=== PATIENT | female | born 1950 | race African-American/Black ===

== ENCOUNTER 2017-09-26 12:09 | Emergency (ER) | payer MEDICARE ==
--- NOTE | 2017-09-26 15:23 | Cat Scan Report ---
FINAL REPORT PROCEDURE: CT HEAD/BRAIN WO CON TECHNIQUE: Computerized tomography of the head was performed without contrast material. HISTORY: fall, headache COMPARISON: No prior studies are available for comparison. FINDINGS: Skull and scalp: Normal. Paranasal sinuses: Normal. Ventricles and subarachnoid spaces: Normal. Cerebrum: No evidence of hemorrhage, acute infarction or mass. Mild atrophy. There are basal ganglia calcifications. Cerebellum and brainstem: No evidence of hemorrhage, acute infarction or mass. Vasculature: Normal. Comments: None. IMPRESSION: Involutional change. No hemorrhage.
--- NOTE | 2017-09-27 02:59 | Emergency Department Report ---
ED General Adult HPI - General Chief complaint: Fall Stated complaint: DIZZINESS/HEADACHE Time Seen by Provider: 09/27/17 02:41 Source: patient Mode of arrival: Ambulatory Limitations: Language Barrier - History of Present Illness Initial comments: Patient declines formal scaffold worker, patient requests that daughter translate for her. Daughter is Ms. Flaherty; [phone] Patient had a mechanical fall and landed on the left side of her head. Prior to the fall, patient had no symptoms. After the fall, patient has left-sided headache. Headache does not radiate anywhere. Headache increases with palpation of the left temporal region and decreases with rest. There is no neck pain, there is no vomiting, there is no weakness focally, there is no numbness, there is no ataxia. Patient describes nonspecific dizziness. -: Sudden Location: head Radiation: non-radiation Severity scale (0 -10): 4 Quality: aching Consistency: intermittent Improves with: rest Worsens with: movement Associated Symptoms: headaches. denies: confusion, chest pain, cough, diaphoresis, fever/chills, loss of appetite, rash, seizure, shortness of breath , syncope, weakness - Related Data Home Medications Medication Instructions Recorded Confirmed Last Taken ALPRAZolam [Xanax TAB] 0.25 mg PO TID PRN 09/05/15 09/05/15 Unknown Amitriptyline [Elavil] 0.5 tab PO QHS 09/05/15 09/05/15 Unknown Citalopram Hydrobromide [celeXA] 20 mg PO DAILY 09/05/15 09/05/15 Unknown Meloxicam 15 mg PO QDAY 09/05/15 09/05/15 Unknown Previous Rx's Medication Instructions Recorded Last Taken Type Aspirin EC [Aspirin Enteric Coated 81 mg PO QDAY #90 tablet 06/12/15 1 Day Ago Rx TAB] ~06/14/15 Multivit-Min/Iron/Folic/Lutein 1 each PO QDAY #90 tablet 06/12/15 1 Day Ago Rx [Centrum Silver Women Tablet] ~06/14/15 [facility] Fatty Acids/Fish Oil [Fish 2,000 mg PO BID #60 capsule 06/12/15 1 Day Ago Rx Oil] ~06/14/15 Simvastatin [Zocor TAB] 40 mg PO QHS #30 tablet 06/12/15 1 Day Ago Rx ~06/14/15 metFORMIN [Glucophage] 500 mg PO BID #60 tablet 06/12/15 1 Day Ago Rx ~06/14/15 Famotidine [Pepcid] 20 mg PO BID #60 tablet 09/05/15 Unknown Rx Omeprazole [PriLOSEC] 40 mg PO QAM #30 cap 09/05/15 Unknown Rx Acetaminophen [Tylenol Arthritis] 650 mg PO Q6HR PRN #30 tablet.er 09/27/17 Unknown Rx Allergies Allergy/AdvReac Type Severity Reaction Status Date / Time latex AdvReac Itching Verified 09/26/17 12:27 ED Review of Systems ROS: Stated complaint: DIZZINESS/HEADACHE Other details as noted in HPI ED Past Medical Hx - Past Medical History Hx Diabetes: Yes ("PREDIABETIC") Additional medical history: HIGH CHOLESTEROL, - Surgical History Additional Surgical History: CATARACTS REMOVED - Social History Smoking Status: Never Smoker Substance Use Type: None - Medications Home Medications: Home Medications Medication Instructions Recorded Confirmed Last Taken Type Aspirin EC [Aspirin Enteric Coated 81 mg PO QDAY #90 tablet 06/12/15 09/05/15 1 Day Ago Rx TAB] ~06/14/15 Multivit-Min/Iron/Folic/Lutein 1 each PO QDAY #90 tablet 06/12/15 09/05/15 1 Day Ago Rx [Centrum Silver Women Tablet] ~06/14/15 [facility] Fatty Acids/Fish Oil [Fish 2,000 mg PO BID #60 capsule 06/12/15 1 Day Ago Rx Oil] ~06/14/15 Simvastatin [Zocor TAB] 40 mg PO QHS #30 tablet 06/12/15 09/05/15 1 Day Ago Rx ~06/14/15 metFORMIN [Glucophage] 500 mg PO BID #60 tablet 06/12/15 09/05/15 1 Day Ago Rx ~06/14/15 ALPRAZolam [Xanax TAB] 0.25 mg PO TID PRN 09/05/15 09/05/15 Unknown History Amitriptyline [Elavil] 0.5 tab PO QHS 09/05/15 09/05/15 Unknown History Citalopram Hydrobromide [celeXA] 20 mg PO DAILY 09/05/15 09/05/15 Unknown History Famotidine [Pepcid] 20 mg PO BID #60 tablet 09/05/15 Unknown Rx Meloxicam 15 mg PO QDAY 09/05/15 09/05/15 Unknown History Omeprazole [PriLOSEC] 40 mg PO QAM #30 cap 09/05/15 Unknown Rx Acetaminophen [Tylenol Arthritis] 650 mg PO Q6HR PRN #30 tablet.er 09/27/17 Unknown Rx ED Physical Exam - General Limitations: Language Barrier General appearance: alert, in no apparent distress - Head Head exam: Present: normocephalic, other (there is a left-sided temporal ecchymosis) - Eye Eye exam: Present: normal appearance, EOMI, other (visual acuity intact to finger counting, color perception. Bilateral evidence of cataract surgery noted in the pupils). Absent: nystagmus - ENT ENT exam: Present: normal exam, normal orophraynx, mucous membranes moist, TM's normal bilaterally, normal external ear exam, other (no hemotympanum. No nasal septal hematoma) - Neck Neck exam: Present: normal inspection, full ROM. Absent: tenderness, meningismus - Respiratory Respiratory exam: Present: normal lung sounds bilaterally. Absent: respiratory distress, chest wall tenderness - Cardiovascular Cardiovascular Exam: Present: regular rate, normal rhythm, normal heart sounds. Absent: systolic murmur, diastolic murmur, rubs, gallop - GI/Abdominal GI/Abdominal exam: Present: soft, normal bowel sounds. Absent: distended, tenderness, guarding, rebound, rigid, pulsatile mass - Extremities Exam Extremities exam: Present: normal inspection, full ROM, normal capillary refill. Absent: pedal edema, joint swelling, calf tenderness - Back Exam Back exam: Present: normal inspection, full ROM. Absent: tenderness, CVA tenderness (R), paraspinal tenderness, vertebral tenderness - Neurological Exam Neurological exam: Present: alert, CN II-XII intact, normal gait (normal gait, normal tandem gait, negative Romberg, no pass pointing, normal [id number]), other (Extraocular movements intact. Tongue midline. No facial droop. Facial sensation intact to light touch in the V1, V2, V3 distribution bilaterally. 5 and 5 strength in 4 extremities.. Sensation is intact to light touch in 4 extremities.). Absent: motor sensory deficit - Psychiatric Psychiatric exam: Present: normal affect, normal mood - Skin Skin exam: Present: warm, ecchymosis (left temporal ecchymosis). Absent: rash, other (no lacerations are noted) ED Course Vital Signs 09/26/17 09/26/17 09/27/17 12: 22:18 03:00 Temperature 97.9 F 98.0 F 97.8 F Pulse Rate 76 68 70 Respiratory 16 14 18 Rate Blood Pressure 124/74 146/74 Blood Pressure 130/75 [Right] O2 Sat by Pulse 98 96 98 Oximetry ED Medical Decision Making - Lab Data Vital Signs 09/26/17 09/26/17 12: 22:18 Temperature 97.9 F 98.0 F Pulse Rate 76 68 Respiratory 16 14 Rate Blood Pressure 124/74 146/74 O2 Sat by Pulse 98 96 Oximetry - Radiology Data Radiology results: report reviewed, image reviewed Noncontrast CT scan of the brain, interpreted by radiology: No acute disease - Medical Decision Making Differential diagnosis, including without limited to: Intracranial injury, concussion, or head/temporal ecchymosis Assessment and plan: 67-year-old female status post mechanical fall 2 days ago, no midline cervical spine tenderness, with nonspecific headache and dizziness. GCS of 15, NIH score of 0, walks with a steady gait, visual acuity intact to color perception, finger counting at a close distance, patient's history and physical likely consistent with concussion, extensive discussion had with daughter who translated, patient declined a formal scaffold worker, return precautions are reviewed. Critical care attestation.: If time is entered above; I have spent that time in minutes in the direct care of this critically ill patient, excluding procedure time. ED Disposition Clinical Impression: Concussion Disposition: DC-01 TO HOME OR SELFCARE Is pt being admited?: No Does the pt Need Aspirin: No Condition: Stable Instructions: Concussion (ED), Minor Head Injury (ED) Additional Instructions: Patient likely has a concussion. Symptoms of concussion include dizziness, lightheadedness, fogginess, forgetfulness, blurry vision, generalized malaise and weakness. Symptoms of concussion may last for a few days to a few weeks to a few months. Patient should avoid heavy lifting and strenuous physical activity. The patient should follow-up with the private physician or primary care doctor within the next 7-10 days. Patient can take the pain medication as needed/directed. Return to the ER right away with fevers, chills, lethargy, irritability, projectile vomiting, change in mental status, confusion, inability to tolerate liquid feeds, new, worsening or different symptoms. Patient should specifically avoid contact sports and contact athletics. Prescriptions: Acetaminophen [Tylenol Arthritis] 650 mg PO Q6HR PRN #30 tablet.er PRN Reason: Pain Referrals: PRIMARY CARE, [Primary Care Provider] - 3-5 Days JOSE C ASHLEY MD [Staff Physician] - 3-5 Days
[2017-09-27] MEDS ORDERED: TYLENOL PO ONE (03:02)
[2017-09-27 03:37] VITALS: BP 130/75
== END 2017-09-27 03:35 | disposition home or self-care (01) ==
LOC: ED 12:09
DX: S06.0X9A Concussion with loss of consciousness of unspecified duration, initial encounter (principal); W17.89XA Other fall from one level to another, initial encounter; Y93.89 Activity, other specified; Y92.89 Other specified places as the place of occurrence of the external cause; Y99.8 Other external cause status; E78.00 Pure hypercholesterolemia, unspecified; Z79.82 Long term (current) use of aspirin; Z91.040 Latex allergy status
CPT/HCPCS: 70450

== ENCOUNTER 2017-10-05 07:43 | Outpatient (CLI) | payer MEDICARE ==
--- NOTE | 2017-10-05 08:23 | Cat Scan Report ---
CRANIAL CT SCAN: Closed head trauma. Serial contiguous axial images were obtained through the cranium. Intravenous contrast material was not administered. The ventricles are normal in size and appearance. There is no mass effect or midline shift. No areas of abnormally increased or decreased attenuation are seen. No mass lesion is seen. Mild cerebral atrophy. The The mastoid air cells and visualized portions of the sinuses are normal. No interval change compared to prior exam of September 26, 2017. IMPRESSION: Cranial CT scan within normal limits for age.
== END 2017-10-05 07:44 | disposition home or self-care (01) ==
LOC: CT 07:43
PROVIDERS: ATTEND Nurse Practitioner Family
DX: S09.90XS Unspecified injury of head, sequela (principal); G31.89 Other specified degenerative diseases of nervous system; E78.5 Hyperlipidemia, unspecified; X58.XXXS Exposure to other specified factors, sequela
CPT/HCPCS: 70450